=== PATIENT | female | born 1975 | race African-American/Black ===

== ENCOUNTER 2018-09-17 17:33 | Emergency (ER) | payer OTHER ==
[2018-09-17 17:41] VITALS: BP 144/92; PULSE 82; TEMP 98; BMI 39.6
--- NOTE | 2018-09-17 17:41 | PDOC ---
Rapid Medical Evaluation Chief Complaint: Laceration Time Seen by Provider: 09/17/18 17:39 Medical Evaluation: 09/17/18 17:39 I have done a brief in-person assessment of this patient. The patient presents with a chief complaint of injury to right digit yesterday. Patient states laceration to right 3rd digit yesterday by glass. Patient seen in Urgent Care, given tetanus and referrred to ed. Pertinent physical exam findings NAD even and unlabored right 3rd digit with dressing in place I have ordered the following: The patient will proceed to the Ed for further evaluation. DX: injury to finger Discharge Disposition - Discharge Dispostion Condition at time of disposition: Stable - Referrals - Patient Instructions - Post Discharge Activity
--- NOTE | 2018-09-17 18:44 | PDOC ---
History of Present Illness - General Chief Complaint: Laceration Stated Complaint: INJURY TO FINGER Time Seen by Provider: 09/17/18 17:39 - History of Present Illness Initial Comments: 09/17/18 18:41 42-year-old female without comorbidities presents for evaluation of a laceration of her right middle finger which occurred yesterday afternoon at around 2 PM. While washing dishes. She was seen at an urgent care and told to follow-up in the emergency room did not suture her because it did not feel comfortable suturing of finger Past History - Past Medical History Allergies/Adverse Reactions: Allergies Allergy/AdvReac Type Severity Reaction Status Date / Time No Known Allergies Allergy Verified 09/17/18 17:41 Home Medications: Ambulatory Orders NK [No Known Home Medication] 09/17/18 Asthma: No COPD: No Diabetes: No Liver Disease: No - Surgical History Cholecystectomy: No - Immunization History Immunization Up to Date: No - Suicide/Smoking/Psychosocial Hx Smoking History: Current every day smoker Have you smoked in the past 12 months: No Information on smoking cessation initiated: No Hx Alcohol Use: No Drug/Substance Use Hx: No Review of Systems - Review of Systems Integumentary: Yes: See HPI *Physical Exam - Vital Signs Last Vital Signs Temp Pulse Resp BP Pulse Ox 98.0 F 82 18 144/92 98 09/17/18 17:39 09/17/18 17:39 09/17/18 17:39 09/17/18 17:39 09/17/18 17:39 - Physical Exam Comments: 09/17/18 18:42 Ears about a 1-1/2 cm laceration exposing subcutaneous fat at the ulnar aspect of the right middle finger FDS and FDP work independently there is no exposed tendon the area of the laceration is dry. No gross sensorimotor deficits Moderate Sedation - Procedure Monitoring Vital Signs: Procedure Monitoring Vital Signs Temperature 98.0 F 09/17/18 17:39 Pulse Rate 82 09/17/18 17:39 Respiratory Rate 18 09/17/18 17:39 Blood Pressure 144/92 09/17/18 17:39 O2 Sat by Pulse Oximetry (%) 98 09/17/18 17:39 Medical Decision Making - Medical Decision Making 09/17/18 18:42 Been greater than 24 hours. I will allow this wound to heal by secondary intention. Wet-to-dry dressing shown supplies were given to patient. I will have her follow-up with hand surgery *DC/Admit/Observation/Transfer Diagnosis at time of Disposition: Laceration of finger - Discharge Dispostion Disposition: HOME Condition at time of disposition: Stable Decision to Admit order: No - Referrals Referrals: Bernardo Pruett MD [Staff Physician] - - Patient Instructions Additional Instructions: Please wash the area with soap and water twice daily and apply wet-to-dry dressings as discussed in the emergency room twice daily. He will probably need to wet-to-dry dressing changes for about the first 2-3 days. After that he will decrease to wet-to-dry dressing changes while continuing to wash her hand with soap and water once a day. He will discontinue the dressing change at night and leave the area open to air. Please follow-up with hand surgery in 2-3 days for further evaluation and treatment options. He do not require antibiotics at this time. Return to the emergency room should he develop any problems - Post Discharge Activity
== END 2018-09-17 18:48 | disposition home or self-care (01) ==
LOC: JERFT 17:33
DX: S61.212A Laceration without foreign body of right middle finger without damage to nail, initial encounter (principal); W45.8XXA Other foreign body or object entering through skin, initial encounter; Y93.G1 Activity, food preparation and clean up; Y92.89 Other specified places as the place of occurrence of the external cause; F17.210 Nicotine dependence, cigarettes, uncomplicated
CPT/HCPCS: 99281-25